=== PATIENT | male | born 2005 | race Two or more races ===

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

== ENCOUNTER 2023-03-27 15:41 | Outpatient (CLI) | payer OTHER | END 2023-03-27 15:49 | disposition home or self-care (01) | LOC: RAD 15:41 | PROVIDERS: ATTEND Orthopaedic Surgery | DX: M25.531 Pain in right wrist (principal) ==

== ENCOUNTER 2024-03-20 11:14 | Inpatient (IN) | payer OTHER ==
[~2024-03-20] VITALS: Ht 175.3 cm; Wt 86.2 kg
--- NOTE | 2024-03-20 12:04 | NUR ---
SE RECBE PTE ALERTA Y ORIENTADO X3 CUAL REFIERE PRESENTA FABIANA DOLOR ABD HACE UNOS TERRY QUE NO MEJORA CON MEDICAMENTOS. PTE PRESENTA REFERIDO MEDICO PARA CONSULTA CON DR.BAEZ COLINDRES. SE ASMITA S/V Y SE BUICA.
[2024-03-20] MEDS ORDERED: RINGERS SOLUTION,LACTATED 1,000 ML IV ONE (13:15)
[2024-03-20 14:14] LABS: HEMATOCRIT 45.2 % (39.0-48.0); MEAN CELL VOLUME 81.5 fL (80.0-100.00); MEAN CORPUSCULAR HEMOGLOBIN 28.9 pg (27.00-32.0); MEAN CORPUSCULAR HGB CONC 35.4 g/dl (32.0-36.0); PLATELET COUNT 219 K/uL (150-450); RED BLOOD COUNT 5.54 M/uL (4.00-6.00); RED CELL DISTRIBUTION WIDTH 13.6 % (11.5-14.5)
--- NOTE | 2024-03-20 14:19 | NUR ---
SE EDUCA A PTE SOBRE TX A RECIBIR EN EL AREA EL MISMO REFIERE ENTENDER. SE CANALIZA PTE Y SE COLOCA IVFLUIDS ZACH ORDEN MEDICA. SE REALIZAN MUESTRAS Y SE ENVIAN DE FORMA INMEDIATA. SE GUERLINE PTE EN ESPERA DE RESULTADOS DE LAB PARA REALIZAR ESTUDIO.
[2024-03-20 14:32] LABS: INR 1.04; PARTIAL THROMBOPLASTIN TIME 31.9 SECONDS (22.0-34.0); PROTHROMBIN TIME 10.9 SECONDS (9.0-11.5)
[2024-03-20 14:37] LABS: ALBUMIN 4.7 gm/dL (3.4-5.0); BILIRUBIN TOTAL 4.54 mg/dL (0.3-1.2); CALCIUM 10.3 mg/dL (8.5-10.1); CREATININE SERUM 1.09 mg/dL (0.70-1.30); GFR 85.4; GLOBULINA 4.1 G/DL (2.4-3.5); POTASSIUM 4.26 mEq/L (3.5-5.1); TOTAL PROTEIN 8.8 gm/dL (6.4-8.2)
[2024-03-20] MEDS ORDERED: CIPROFLOXACIN IN 5 % DEXTROSE 200 ML IV SCH (18:23)
[2024-03-20] MEDS ORDERED: METRONIDAZOLE/SODIUM CHLORIDE 100 ML IV SCH (18:23)
[2024-03-20] MEDS ORDERED: CIPROFLOXACIN IN 5 % DEXTROSE 400 MG/200 ML PIGGYBAG IV ONE (18:30)
[2024-03-20] MEDS ORDERED: CEFTRIAXONE SODIUM 1,000 MG VIAL IV ONE (18:30)
[2024-03-20] MEDS ORDERED: MEPERIDINE HCL/PF 25 MG/ML VIAL IM PRN (19:15)
[2024-03-20] MEDS ORDERED: 0.9 % SODIUM CHLORIDE 1,000 ML IV SCH (19:15)
[2024-03-20 22:41] LABS: BILIRUBIN TOTAL 4.35 mg/dL (0.3-1.2); BILIRUBIN,CONJUGATED 0.46 mg/dL (0.0-0.2); BILIRUBIN,UNCONJUGATED 3.89 mg/dL (0.0-0.6)
[2024-03-20 22:43] LABS: CHOL HDL RATIO 2.4 (0-5.0); CHOLESTEROL 136 mg/dL (0-200); HDL 56 mg/dl (40-60); LDL 66 mg/dl (0-130); TRIGLYCERIDES 69 mg/dL (0-150); VLDL 13 (0-39)
[2024-03-20 22:51] LABS: C-REACTIVE PROTEIN < 0.29 MG/DL (0.00-0.29)
[2024-03-21] MEDS ORDERED: FAMOTIDINE/PF 20 MG in 0.9 % SODIUM CHLORIDE 8 ML IV PUSH SCH (09:00)
[2024-03-21 10:51] LABS: ALBUMIN 3.9 gm/dL (3.4-5.0); BILIRUBIN TOTAL 3.89 mg/dL (0.3-1.2); BILIRUBIN,CONJUGATED 0.28 mg/dL (0.0-0.2); BILIRUBIN,UNCONJUGATED 3.61 mg/dL (0.0-0.6); TOTAL PROTEIN 6.9 gm/dL (6.4-8.2)
[2024-03-21 11:24] LABS: PH,URINE 7.5 (5.0-8.0); URINE APPEARANCE Clear; URINE BILIRRUBIN Negative (NEGATIVE); URINE BLOOD Negative; URINE COLOR Yellow; URINE GLUCOSE Negative (NEGATIVE); URINE LEUKOCYTE Negative; URINE NITRATE Negative; URINE PROTEIN Negative (NEGATIVE); URINE UROBILINOGEN 0.2 E.U./dl
[2024-03-21 11:45] LABS: URINE BACTERIA 1.2 uL (0.0-1933); URINE EPITHELIAL CELLS 0.1 uL (0.0-38.8); URINE RBC 0.1 uL (0.0-20.8); URINE WBC 0.1 uL (0.0-23.2)
[2024-03-21] MEDS ORDERED: AA 4.25%/CAL/LYTES/DEXT 5% 1,000 ML PERIFERAL SCH (17:00)
[2024-03-22 09:49] LABS: CALCIUM 9.6 mg/dL (8.5-10.1); CHOL HDL RATIO 2.9 (0-5.0); CREATININE SERUM 0.9 mg/dL (0.70-1.30); GFR 106.52; POTASSIUM 3.95 mEq/L (3.5-5.1)
[2024-03-23 07:07] LABS: HEMATOCRIT 43.5 % (39.0-48.0); HEMOGLOBIN 15.6 g/dL (13-16.00); MEAN CELL VOLUME 81.6 fL (80.0-100.00); MEAN CORPUSCULAR HEMOGLOBIN 29.3 pg (27.00-32.0); MEAN CORPUSCULAR HGB CONC 35.9 g/dl (32.0-36.0); PLATELET COUNT 200 K/uL (150-450); RED BLOOD COUNT 5.33 M/uL (4.00-6.00)
[2024-03-23 07:57] LABS: ALBUMIN 4.2 gm/dL (3.4-5.0); BILIRUBIN TOTAL 2.96 mg/dL (0.3-1.2); CALCIUM 9.2 mg/dL (8.5-10.1); CREATININE SERUM 0.84 mg/dL (0.70-1.30); GFR 115.35; GLOBULINA 3.5 G/DL (2.4-3.5); POTASSIUM 3.81 mEq/L (3.5-5.1); TOTAL PROTEIN 7.7 gm/dL (6.4-8.2)
[2024-03-23] MEDS ORDERED: TRAMADOL HCL 50 MG TABLET PO PRN (10:45)
[2024-03-23] MEDS ORDERED: HYOSCYAMINE SULFATE 0.125 MG TAB.SUBL SL PRN (10:45)
[2024-03-23] MEDS ORDERED: HYOSCYAMINE0.125 M1 SL (10:48)
[2024-03-23] MEDS ORDERED: TRAMADOL HCL50 MG PO (10:49)
== END 2024-03-23 14:31 | disposition home or self-care (01) | DRG 419 ==
LOC: ER 11:15 → SURH 19:32 → SEC-K 19:32 → SURH 20:22
PROVIDERS: General Practice; Surgery; ADMIT Internal Medicine; ATTEND Internal Medicine
PROC: BW40ZZZ Ultrasonography of Abdomen (ICD-10-PCS; 2024-03-20)
PROC: BF37ZZZ Magnetic Resonance Imaging (MRI) of Pancreas (ICD-10-PCS; 2024-03-20)
PROC: BW21YZZ Computerized Tomography (CT Scan) of Abdomen and Pelvis using Other Contrast (ICD-10-PCS; 2024-03-20)
PROC: 0FT44ZZ Resection of Gallbladder, Percutaneous Endoscopic Approach (ICD-10-PCS; principal; 2024-03-22 16:15)
DX: K80.20 Calculus of gallbladder without cholecystitis without obstruction (principal); K82.8 Other specified diseases of gallbladder; E80.6 Other disorders of bilirubin metabolism